=== PATIENT | female | born 1985 | race Caucasian/White ===

== ENCOUNTER 2016-06-07 09:33 | Emergency (ER) | payer SELFPAY ==
[2016-06-07 10:46] LABS: RBC URINE 1 /hpf (0-3); URINE BACTERIA RARE (<OCC); URINE BILIRUBIN NEGATIVE (NEGATIVE); URINE BLOOD 1+ (NEGATIVE); URINE COLOR Straw (YELLOW); URINE GLUCOSE (UA) NORMAL (Normal); URINE KETONE NEGATIVE (NEGATIVE); URINE LEUKOCYTE ESTERASE NEG Leu/uL (Negative); URINE PROTEIN NEGATIVE (NEGATIVE); URINE UROBILINOGEN NORMAL mg/dL (0.2-1.0); WBC URINE < 1 /hpf (0-5)
--- NOTE | 2016-06-07 11:09 | C.PDOC ---
History Of Present Illness A 30 year old female, without a significant past medical history, presents to the emergency room for the evaluation of left flank pain and left shoulder pain that has gradually developed over the last few days. Patient notes that the shoulder pain intermittently radiates down to the left hand as a tingling sensation. Patient admits to lifting heavy objects at work. Patient otherwise denies any known trauma/injury, chest pain, shortness of breath, dyspnea, wheezing, palpitation, abdominal pain, N/V/D, any urinary symptoms, or any other complaints. Time Seen by Provider: 06/07/16 09:44 Chief Complaint (Nursing): Back Pain History Per: Patient History/Exam Limitations: no limitations Onset/Duration Of Symptoms: Days (Few days), Intermittent Episodes, Gradual Current Symptoms Are (Timing): Still Present Quality Of Discomfort: "Pain" Severity: Moderate Previous Symptoms: None Associated Symptoms: denies: Incontinence, New Weakness, New Numbness Exacerbating Factor(s): Nothing Recent travel outside of the [place]: No Past Medical History Reviewed: Historical Data, Nursing Documentation, Vital Signs Vital Signs: Last Vital Signs Temp 98.1 F 06/07/16 11:32 Pulse 78 06/07/16 11:32 Resp 18 06/07/16 11:32 BP 122/75 06/07/16 11:32 Pulse Ox 98 06/07/16 11:32 Surgical History: Family History: States: Unknown Family Hx - Social History Hx Tobacco Use: Yes (smoke cessation counseling provided) Hx Alcohol Use: Yes Hx Substance Use: No - Immunization History Hx Tetanus Toxoid Vaccination: No Hx Influenza Vaccination: Yes Hx Pneumococcal Vaccination: No Review Of Systems Except As Marked, All Systems Reviewed And Found Negative. Constitutional: Negative for: Fever, Chills Cardiovascular: Negative for: Chest Pain Respiratory: Negative for: Shortness of Breath Gastrointestinal: Negative for: Nausea, Vomiting, Diarrhea Genitourinary: Negative for: Dysuria, Frequency, Incontinence, Hematuria Musculoskeletal: Positive for: Shoulder Pain (Left shoulder pain), Back Pain ( Left flank pain) Neurological: Positive for: Other (Intermittent tingling radiating from the left shoulder down to the left hand.). Negative for: Headache, Dizziness Physical Exam - Physical Exam Appears: Well, Non-toxic, No Acute Distress Skin: Normal Color, Warm, Dry, No Rash, No Ecchymosis Eye(s): bilateral: PERRL Nose: Normal, No Discharge Oral Mucosa: Moist Throat: Normal, No Erythema, No Exudate, No Drooling Neck: Normal, Normal ROM, Supple Cardiovascular: Rhythm Regular Respiratory: Normal Breath Sounds, No Stridor, No Wheezing Gastrointestinal/Abdominal: Normal Exam, Soft, No Tenderness Back: No CVA Tenderness, No Vertebral Tenderness, No Paraspinal Tenderness, Other (mild Left flank tenderness, no skin changes.) Extremity: Tenderness (mild Left superior shoulder tenderness. FAROM, no neurovascular deficits.), No Deformity, No Swelling Neurological/Psych: Oriented x3, Normal Speech, Normal Motor, Normal Sensation, Normal Reflexes ED Course And Treatment O2 Sat by Pulse Oximetry: 100 Pulse Ox Interpretation: Normal Progress Note: On re-evaluation, pt is afebrile, hemodynamicaly stable. NOn- toxic. Ambulatory in ED with stable gait. Neck: (-) meningeals ign. Lungs: CTA B/L, BS equal B/L. ABd: Benign. Back: (-) CVA tenderness. UA results review and appears normal. Pt has clinical findings c/w Left shoulder pain r/o cervical radiculopathy. Left flank pain. Pt advised. ref. to f/u with PMD in 2 -3 days for re-eval. return ifa ny new changes. Disposition Counseled Patient/Family Regarding: Studies Performed, Diagnosis, Need For Followup, Rx Given - Disposition Referrals: [facility] [Outside] Disposition: HOME/ ROUTINE Disposition Time: 11:00 Condition: STABLE Additional Instructions: Take medication as prescribed Avoid physical activity for 1 week Take medication as need Follow up with PMD in 2-3 days for re-evaluation. Return to ED if any worsening or new changes. Prescriptions: Ibuprofen [Motrin] 1 tab PO TID PRN #20 tab PRN Reason: Pain traMADol [Ultram] 50 mg PO TID #7 tab Instructions: Cervical Radiculopathy (ED), Flank Pain (ED) Forms: Work Excuse - Clinical Impression Clinical Impression: Cervical radiculitis, Flank pain - Scribe Statement The provider has reviewed the documentation as recorded by the Angelaibgoldie Belle All medical record entries made by the Scribe were at my direction and personally dictated by me. I have reviewed the chart and agree that the record accurately reflects my personal performance of the history, physical exam, medical decision making, and the department course for this patient. I have also personally directed, reviewed, and agree with the discharge instructions and disposition.
[2016-06-07 11:33] VITALS: BP 122/75; PULSE 78; RESP 18; TEMP 98.1
[2016-06-07 18:26] VITALS: O2SAT 100
== END 2016-06-07 11:33 | disposition home or self-care (01) ==
LOC: C.ER 09:33
DX: M54.12 Radiculopathy, cervical region (principal); R10.9 Unspecified abdominal pain

== ENCOUNTER 2016-08-24 09:59 | Emergency (ER) | payer OTHER ==
[2016-08-24 10:06] VITALS: O2SAT 100
[2016-08-24 10:53] LABS: SQUAMOUS EPITHIAL 1 /hpf (0-5); URINE BILIRUBIN NEGATIVE (NEGATIVE); URINE BLOOD NEGATIVE (NEGATIVE); URINE CLARITY Clear (Clear); URINE COLOR Straw (YELLOW); URINE GLUCOSE (UA) NORMAL (Normal); URINE LEUKOCYTE ESTERASE NEG Leu/uL (Negative); URINE NITRATE NEGATIVE (NEGATIVE); URINE PROTEIN NEGATIVE (NEGATIVE); URINE UROBILINOGEN NORMAL mg/dL (0.2-1.0)
--- NOTE | 2016-08-24 11:01 | C.PDOC ---
History Of Present Illness 30 y/o female 14 weeks presents to ED with complaints of fever, chills , body aches and headache for 3 days. Patient denies sore throat, cough, runny nose, abdominal pain, n/v/d, dysuria, vaginal bleeding or sick contacts. No other complaints at this time. Time Seen by Provider: 08/24/16 10:15 Chief Complaint (Nursing): Fever History Per: Patient History/Exam Limitations: no limitations Onset/Duration Of Symptoms: Days Current Symptoms Are (Timing): Still Present Associated Symptoms: Fever, Chills Past Medical History Reviewed: Historical Data, Nursing Documentation, Vital Signs Vital Signs: Last Vital Signs Temp 98.7 F 08/24/16 10:05 Pulse 80 08/24/16 10:05 Resp 20 08/24/16 10:05 BP 111/79 08/24/16 10:05 Pulse Ox 100 08/24/16 11:12 - Medical History PMH: Cardia Arrhythmia (SVT) Surgical History: Family History: States: Unknown Family Hx - Social History Hx Tobacco Use: Yes (smoke cessation counseling provided) Hx Alcohol Use: No Hx Substance Use: No - Immunization History Hx Tetanus Toxoid Vaccination: No Hx Influenza Vaccination: No Hx Pneumococcal Vaccination: No Review Of Systems Except As Marked, All Systems Reviewed And Found Negative. Constitutional: Positive for: Fever, Chills Cardiovascular: Negative for: Chest Pain Respiratory: Negative for: Cough, Shortness of Breath Gastrointestinal: Negative for: Nausea, Vomiting, Abdominal Pain, Diarrhea Genitourinary: Negative for: Dysuria, Vaginal Bleeding Skin: Negative for: Rash Neurological: Positive for: Headache Physical Exam - Physical Exam Appears: Non-toxic, No Acute Distress Skin: Normal Color, Warm Head: Atraumatic, Normacephalic Oral Mucosa: Moist Throat: Normal, No Erythema Cardiovascular: Rhythm Regular, No Murmur Respiratory: Normal Breath Sounds, No Rales, No Rhonchi, No Wheezing Gastrointestinal/Abdominal: Soft, No Tenderness, No Guarding, No Rebound Extremity: Normal ROM, Capillary Refill (<2 seconds) Neurological/Psych: Oriented x3 ED Course And Treatment O2 Sat by Pulse Oximetry: 100 (RA) Pulse Ox Interpretation: Normal Progress Note: Urine test to evaluate . Patient discharged with Tylenol and instructed to follow up with PMD. Disposition - Disposition Referrals: Micki Putnam MD [Staff Provider] - Disposition: HOME/ ROUTINE Condition: STABLE Additional Instructions: FOLLOW UP WITH YOUR DOCTOR IN 1-2 DAYS USE TYLENOL EVERY 6 HOUR NEEDED DRINK PLENTY OF FLUIDS RETURN TO ER IF SYMPTOMS WORSEN Prescriptions: Acetaminophen [Tylenol 325mg tab] 650 mg PO Q6 PRN #30 tab PRN Reason: pain/fever Instructions: Viral Syndrome (ED) Print Language: INDONESIAN - Clinical Impression Clinical Impression: Fever, Viral syndrome - Scribe Statement The provider has reviewed the documentation as recorded by the Zachariah Raymond All medical record entries made by the Zachariah were at my direction and personally dictated by me. I have reviewed the chart and agree that the record accurately reflects my personal performance of the history, physical exam, medical decision making, and the department course for this patient. I have also personally directed, reviewed, and agree with the discharge instructions and disposition.
[2016-08-24 11:46] VITALS: BP 121/81; PULSE 69; RESP 18; TEMP 97.8
== END 2016-08-24 11:10 | disposition home or self-care (01) ==
LOC: C.ER 09:59
DX: B34.9 Viral infection, unspecified (principal); R50.9 Fever, unspecified